=== PATIENT | male | born 1945 | race Caucasian/White ===

== ENCOUNTER 2017-06-22 10:55 | Outpatient (RCR) | payer BC, MEDICARE ==
[~2017-06-22 10:55] MED LIST: ASP81TEC PO; BUTA-234 PO; DIPH1TAB25 PO; ENOX100D9 SQ; GABAPENTIN; HYDR-3720 PO; LITH300C PO; LNS30CCR PO; LORA1TAB PO; MECL25TA56 PO; WRF5T PO
== END 2017-09-20 | disposition home or self-care (01) ==
LOC: ONC 10:55
PROVIDERS: ATTEND Internal Medicine Hematology & Oncology
DX: Z09 Encounter for follow-up examination after completed treatment for conditions other than malignant neoplasm (principal); Z86.711 Personal history of pulmonary embolism; Z86.718 Personal history of other venous thrombosis and embolism; K21.9 Gastro-esophageal reflux disease without esophagitis; F31.9 Bipolar disorder, unspecified; Z79.01 Long term (current) use of anticoagulants
CPT/HCPCS: 99213

== ENCOUNTER 2021-12-05 08:07 | Emergency (ER) | payer MEDICARE ==
[~2021-12-05] VITALS: Ht 154 cm; Wt 95.0 kg
[2021-12-05] MEDS ORDERED: KETOROLAC 30 MG/ML VIAL IM STA (08:35)
--- NOTE | 2021-12-05 08:48 | ED Back Pain ---
General Chief Complaint: Back Problems Stated Complaint: BACK PAIN Nursing Triage Note: PT ABM TO RM 5 PT CO OF BACK PAIN, UPPER BACK BETWEEN SHOULDERS, STATES L HAND GOING NUMB SINCE WAKING THIS AM. PT STATES UPPER BACK HAS BEEN GOING ON FOR 2-5 DAYS Source of Information: Patient, Family Exam Limitations: No Limitations History of Present Illness Date Seen by Provider: Dec 05, 2021 Time Seen by Provider: 08:12 Initial Comments Here with pain to the left side of the back that radiates from between the shoulder blades up to the neck and now down the arm. This has been going on for the last several days and maybe up to 5 days. Denies inciting event but does admit to moving mulch and gardening at the beginning of the month. Does have history of cervical degeneration. Denies anterior chest pain,, nausea, vomiti ng, sweating or weakness. Does state that there is some numbness of the left hand but retains movement. Pain is much worse when moving or sitting up and worse with movement of the left arm. noted muscle spasm and hard knot between the shoulder range and the spine on the left. Did get a little better with ibuprofen yesterday but does not typically take that. Does have some stomach problems and was on diclofenac but is off that now due to the stomach problems. Otherwise no changes for the patient. Timing/Duration: 4-5 Days Severity: Moderate Pain/Injury Location: Back Radiation: Other (Left-sided neck and left arm) Associated Symptoms: muscle spasms; No weakness, No lower back pain, No loss of bladder control, No loss of bowel control Allergies and Home Medications Allergies Coded Allergies: No Known Drug Allergies (Unverified , 09/12/13) Patient Home Medication List Home Medication List Reviewed: Yes Aspirin (Aspirin Ec 81 Mg) 81 Mg Tabec, 81 MG PO DAILY, (Reported) Entered as Reported by: ANAID JUSTICE on 09/12/13 1343 [place] Carbonate (Shaft Carbonate 300 Mg Cap) 300 Mg Capsule, 900 MG PO DAILY, (Reported) Entered as Reported by: YUAN LÓPEZ on 08/11/11 1133 Meclizine Hcl (Antivert 25 Mg) 25 Mg Tablet, 1 EACH PO TID PRN PRN for DIZZINESS Prescribed by: MAX DE PAZ on 09/12/13 1558 [Gabapentin] , 900 MG DAILY, (Reported) Entered as Reported by: ANAID JUSTICE on 09/12/13 1343 Review of Systems Constitutional: see HPI; No chills, No fever Respiratory: No cough, No short of breath; other (Pain with deep breathing occasionally to the left back) Cardiovascular: see HPI; No chest pain, No edema Gastrointestinal: No nausea, No vomiting Musculoskeletal: back pain, muscle pain, muscle stiffness Skin: No change in color, No lesions Psychiatric/Neurological: See HPI; Denies Weakness Past Aeqqnmg-Atbvvp-Vnryjc Hx Patient Social History Tobacco Use?: No Smoking Status: Former Smoker Substance use?: No Alcohol Use?: No Pt feels they are or have been: No Immunizations Up To Date First/Initial COVID19 Vaccinat: 2020 Second COVID19 Vaccination Jarek: 2020 COVID19 Vaccine Bullet Maker: gisela Past Medical History Surgery/Hospitalization HX: APPY, HX PE, DISCETOMY L SPINE, CERVICAL DISC, BIPOLAR, GERD Respiratory: Yes Pulmonary Embolism Reproductive Disorders: Yes (Prostate Hypertrophy) Sexually Transmitted Disease: No HIV/AIDS: No Musculoskeletal: Yes Degenerate Disk Disease Family Medical History Reviewed Nursing Family Hx No Pertinent Family Hx Physical Exam Vital Signs Vital Signs - First Documented 12/05/21 08:13 Temp 37.2 Pulse 76 Resp 18 B/P (MAP) 168/88 (114) Pulse Ox 97 Capillary Refill : Less Than 3 Seconds Height, Weight, BMI Height: 6'1" Weight: 230lbs. oz. 104.402736wh; 40.00 BMI Method:Stated General Appearance: WD/WN, Mild Distress (Left back pain upper) Neck: Full Range of Motion, Normal Inspection, Non Tender, Supple Cardiovascular: Regular Rate, Rhythm, No Murmur Respiratory: Lungs Clear, Normal Breath Sounds Back: No Vertebral Tenderness, Muscle Spasm (Left upper back between scapula and spine. Area of rhomboids with muscle spasm and not noted. This is palpable and point tender with reproducible pain at site reproducing all symptoms.) Neurologic/Psychiatric: Alert, Oriented x3 Skin: Normal Color, Warm/Dry Progress/Results/Core Measures Results/Orders My Orders Orders - MAX DE PAZ MD Ketorolac Injection (Toradol Injection) (12/05/21 08:35) Vital Signs/I&O 12/05/21 08:13 Temp 37.2 Pulse 76 Resp 18 B/P (MAP) 168/88 (114) Pulse Ox 97 Blood Pressure Mean: 114 Progress Progress Note : Progress Note Seen and evaluated. Patient had quite tender area on left upper back were muscle spasm noted in the area of rhomboids on the left. I was able to isolate the spasm and apply pressure and hold. Ultimately I was able to reduce the spasm his pain was markedly reduced and he felt better. We did give Toradol 30 mg IM. Overall I do believe this is musculoskeletal. We did talk about other causes of pain and return precautions. Overall patient and family felt comfortable going home. Discharged home with return precautions. Patient verbalized understanding of instructions and agreement with plan. Departure Impression Primary Impression: Rhomboid muscle strain Qualified Codes: S29.012A - Strain of muscle and tendon of back wall of thorax, initial encounter Disposition: HOME, SELF-CARE Condition: Improved Departure-Patient Inst. Decision time for Depature: 08:51 Referrals: LUL LOYD MD (PCP/Family) Primary Care Physician Patient Instructions: Back Muscle Strain (DC), Upper Back Pain ED Add. Discharge Instructions: All discharge instructions reviewed with patient and/or family. Voiced understanding. You may use [id number] Icy Hot with lidocaine, Aspercreme with lidocaine, Salonpas with lidocaine or similar items to area of concern per package directions. Cream will likely work very well but you may also try patches. Take other medications as previously prescribed. You may take Tylenol/acetaminophen 1000 mg every 6 hours as needed for pain as well. Return for worse pain, chest pain, breathing problems, dizziness, weakness, sweating, nausea vomiting or other concerns as needed. Follow-up with your doctor in a few days for recheck as needed. MAX DE PAZ MD Dec 05, 2021 08:48
[2021-12-05 09:00] VITALS: BP 168/88
== END 2021-12-05 09:00 | disposition home or self-care (01) ==
LOC: EDUNIT# 08:07 → ER 08:08
DX: S46.812A Strain of other muscles, fascia and tendons at shoulder and upper arm level, left arm, initial encounter (principal); Z87.891 Personal history of nicotine dependence; X58.XXXA Exposure to other specified factors, initial encounter
CPT/HCPCS: 99284

== ENCOUNTER 2023-02-16 14:00 | Emergency (ER) | payer MEDICARE ==
[~2023-02-16] VITALS: Ht 185.4 cm; Wt 92.9 kg
[2023-02-16 14:31] LABS: BASOPHILS % (AUTO) 0 % (0-10); EOSINOPHILS # (AUTO) 0.1 10^3/uL (0.0-0.3); EOSINOPHILS % (AUTO) 1 % (0-10); MEAN CORPUSCULAR VOLUME 91 fL (80-99)
[2023-02-16 14:33] LABS: HEMATOCRIT 36 % (40-54); HEMOGLOBIN 12.4 g/dL (13.3-17.7); LYMPHOCYTES # (AUTO) 1.3 10^3/uL (1.0-4.0); LYMPHOCYTES % (AUTO) 28 % (12-44); MEAN CORPUSCULAR HEMOGLOBIN 31 pg (25-34); MEAN CORPUSCULAR HGB CONC 34 g/dL (32-36); MONOCYTES # (AUTO) 0.4 10^3/uL (0.0-1.0); MONOCYTES % (AUTO) 9 % (0-12); NEUTROPHILS # (AUTO) 2.8 10^3/uL (1.8-7.8); NEUTROPHILS % (AUTO) 61 % (42-75); PLATELET COUNT 127 10^3/uL (130-400); WHITE BLOOD COUNT 4.6 10^3/uL (4.3-11.0)
[2023-02-16 14:44] LABS: ALBUMIN 3.8 GM/DL (3.2-4.5)
[2023-02-16 14:45] LABS: POTASSIUM 4.1 MMOL/L (3.6-5.0)
[2023-02-16 14:46] LABS: CALCIUM 8.8 MG/DL (8.5-10.1)
[2023-02-16 14:47] LABS: TOTAL PROTEIN 6.7 GM/DL (6.4-8.2)
[2023-02-16 14:49] LABS: BILIRUBIN,TOTAL 0.7 MG/DL (0.1-1.0)
[2023-02-16 14:51] LABS: CREATININE SERUM 0.97 MG/DL (0.60-1.30)
--- NOTE | 2023-02-16 15:11 | ED General ---
General Chief Complaint: Head/Cervical Problems Stated Complaint: SEVERE HEAD PAIN Nursing Triage Note: PT AMB TO TRIAGE RM WITH CC OF SEVERE HEADACHE ON TOP OF HEAD THAT RADIATES DOWN THE BACK OF HIS NECK X5 DAYS. PT STATES THAT HE HAS HAD FLU-LIKE SYMPTOMS X1.5 WEEKS. PT REFERED TO ED BY [facility]. Source of Information: Patient Exam Limitations: No Limitations History of Present Illness Date Seen by Provider: Feb 16, 2023 Allergies and Home Medications Allergies Coded Allergies: No Known Drug Allergies (Unverified , 09/12/13) Patient Home Medication List Amoxicillin (Amoxicillin) 500 Mg Capsule, 1,000 MG PO TID Prescribed by: ADDY RAWLS on 02/16/23 1723 Aspirin (Aspirin Ec 81 Mg) 81 Mg Tabec, 81 MG PO DAILY, (Reported) Entered as Reported by: ANAID JUSTICE on 09/12/13 1343 Doxycycline Hyclate (Doxycycline Hyclate) 100 Mg Tablet, 100 MG PO BID Prescribed by: ADDY RAWLS on 02/16/23 1723 [place] Carbonate ([place] Carbonate 300 Mg Cap) 300 Mg Capsule, 900 MG PO DAILY, (Reported) Entered as Reported by: YUAN LÓPEZ on 08/11/11 1133 Meclizine Hcl (Antivert 25 Mg) 25 Mg Tablet, 1 EACH PO TID PRN PRN for DIZZINESS Prescribed by: MAX DE PAZ on 09/12/13 1558 [Gabapentin] , 900 MG DAILY, (Reported) Entered as Reported by: ANAID JUSTICE on 09/12/13 1343 Past Aszrnqy-Orxiny-Srdybs Hx Patient Social History Tobacco Use?: No Substance use?: No Alcohol Use?: No Immunizations Up To Date First/Initial COVID19 Vaccinat: 2020 Second COVID19 Vaccination Jarek: 2020 Third COVID19 Vaccination Date: 2020 Past Medical History Surgery/Hospitalization HX: APPY, HX PE, DISCETOMY L SPINE, CERVICAL DISC, BIPOLAR, GERD Respiratory: Yes Pulmonary Embolism Reproductive Disorders: Yes (Prostate Hypertrophy) Sexually Transmitted Disease: No HIV/AIDS: No Musculoskeletal: Yes Degenerate Disk Disease Family Medical History No Pertinent Family Hx Physical Exam Vital Signs Vital Signs - First Documented 02/16/23 14:04 Temp 37.1 Pulse 68 B/P (MAP) 122/77 (92) Pulse Ox 97 O2 Delivery Room Air Capillary Refill : Height, Weight, BMI Height: 6'1" Weight: 230lbs. oz. 104.477523hv; 27.00 BMI Method:Stated Progress/Results/Core Measures Suspected Sepsis SIRS Temperature: Pulse: 68 Respiratory Rate: Laboratory Tests 02/16/23 14:22: White Blood Count 4.6 Blood Pressure 122 /77 Mean: 93 Laboratory Tests 02/16/23 14:22: Creatinine 0.97, Platelet Count 127L, Total Bilirubin 0.7 Results/Orders Lab Results Laboratory Tests Test 02/16/23 14:22 02/16/23 14:43 Range/Units White Blood Count 4.6 4.3-11.0 10^3/uL Red Blood Count 3.96 L 4.30-5.52 10^6/uL Hemoglobin 12.4 L 13.3-17.7 g/dL Hematocrit 36 L 40-54 % Mean Corpuscular Volume 91 80-99 fL Mean Corpuscular Hemoglobin 31 25-34 pg Mean Corpuscular Hemoglobin Concent 34 32-36 g/dL Red Cell Distribution Width 13.5 10.0-14.5 % Platelet Count 127 L 130-400 10^3/uL Mean Platelet Volume 10.0 9.0-12.2 fL Immature Granulocyte % (Auto) 0 % Neutrophils (%) (Auto) 61 42-75 % Lymphocytes (%) (Auto) 28 12-44 % Monocytes (%) (Auto) 9 0-12 % Eosinophils (%) (Auto) 1 0-10 % Basophils (%) (Auto) 0 0-10 % Neutrophils # (Auto) 2.8 1.8-7.8 10^3/uL Lymphocytes # (Auto) 1.3 1.0-4.0 10^3/uL Monocytes # (Auto) 0.4 0.0-1.0 10^3/uL Eosinophils # (Auto) 0.1 0.0-0.3 10^3/uL Basophils # (Auto) 0.0 0.0-0.1 10^3/uL Immature Granulocyte # (Auto) 0.0 0.0-0.1 10^3/uL Percent Immature Platelet Fraction 4.5 0.0-7.6 % Erythrocyte Sedimentation Rate 9 0-30 MM/HR Sodium Level 136 135-145 MMOL/L Potassium Level 4.1 3.6-5.0 MMOL/L Chloride Level 109 H 98-107 MMOL/L Carbon Dioxide Level 20 L 21-32 MMOL/L Anion Gap 7 5-14 MMOL/L Blood Urea Nitrogen 17 7-18 MG/DL Creatinine 0.97 0.60-1.30 MG/DL Estimat Glomerular Filtration Rate 80 BUN/Creatinine Ratio 18 Glucose Level 95 70-105 MG/DL Calcium Level 8.8 8.5-10.1 MG/DL Corrected Calcium 9.0 8.5-10.1 MG/DL Total Bilirubin 0.7 0.1-1.0 MG/DL Aspartate Amino Transf (AST/SGOT) 59 H 5-34 U/L Alanine Aminotransferase (ALT/SGPT) 67 H 0-55 U/L Alkaline Phosphatase 57 40-136 U/L C-Reactive Protein High Sensitivity 0.39 0.00-0.50 MG/DL Total Protein 6.7 6.4-8.2 GM/DL Albumin 3.8 3.2-4.5 GM/DL Influenza Type A (RT-PCR) Not Detected Not Detecte Influenza Type B (RT-PCR) Not Detected Not Detecte SARS-CoV-2 RNA (RT-PCR) Not Detected Not Detecte Group A Streptococcus Screen NEGATIVE NEGATIVE My Orders Orders - ADDY CEJA MD Cbc With Automated Diff (02/16/23 14:16) Comprehensive Metabolic Panel (02/16/23 14:16) Hs C Reactive Protein (02/16/23 14:16) Erythrocyte Sedimentation Rate (02/16/23 14:16) Ed Iv/Invasive Line Start (02/16/23 14:16) Covid 19 Inhouse Test (02/16/23 14:16) Influenza A And B By Pcr (02/16/23 14:16) Chest Pa/Lat (2 View) (02/16/23 14:45) Rapid Strep A Screen (02/16/23 14:45) Throat Culture Strep A Confirm (02/16/23 14:43) Ct Head Wo (02/16/23 15:18) Tick Panel With Lyme Eia (02/16/23 17:15) West Nile Virus Igg & M (02/16/23 17:15) Vital Signs/I&O 02/16/23 02/16/23 02/16/23 02/16/23 14:04 15:08 15:34 16:54 Temp 37.1 Pulse 68 59 59 57 B/P (MAP) 122/77 (92) 128/76 (93) 113/73 (86) 109/69 (82) Pulse Ox 97 97 95 97 O2 Delivery Room Air Room Air Room Air Room Air Capillary Refill : Blood Pressure Mean: 93 Departure Impression Primary Impression: Severe headache Additional Impression: Flu-like symptoms Disposition: 01 HOME, SELF-CARE Condition: Stable Departure-Patient Inst. Decision time for Depature: 17:17 Referrals: NETTIE ORDOÑEZ APRN (PCP/Family) Primary Care Physician Patient Instructions: Headache, Adult ED, Tickborne Encephalitis Add. Discharge Instructions: The exact cause of your symptoms is uncertain. You have pending tests for throat culture, West Nile virus, and tickborne diseases. Continue taking amoxicillin and doxycycline until results of these tests are known. Drink plenty of clear liquids to stay well-hydrated. For pain you may take ibuprofen up to 600 mg every 6 hours as needed. You may additionally take Tylenol (acetaminophen) up to 1000 mg every 6 hours as needed. Doxycycline may cause some stomach upset, so you may wish to take it with food or milk. Doxycycline may also cause sun sensitivity, so avoid significant direct sun contact while on this medication. Return to the emergency room if you have worsening symptoms despite following these instructions. All discharge instructions reviewed with patient and/or family. Voiced understanding. Scripts Ondansetron (Ondansetron Odt) 4 Mg Tab.rapdis 4 MG SL Q4H PRN for NAUSEA/VOMITING, #10 TAB Prov: ADDY CEJA MD 02/16/23 Amoxicillin (Amoxicillin) 500 Mg Capsule 1000 MG PO TID, #40 CAP 0 Refills Prov: ADDY CEJA MD 02/16/23 Doxycycline Hyclate (Doxycycline Hyclate) 100 Mg Tablet 100 MG PO BID, #20 TAB Prov: ADDY CEJA MD 02/16/23 ADDY CEJA MD Feb 16, 2023 15:11
[2023-02-16 15:19] LABS: ERYTHROCYTE SEDIMENTATION RATE 9 MM/HR (0-30)
--- NOTE | 2023-02-16 15:38 | Diagnostic Imaging Report ---
EXAMINATION: Chest 2 view HISTORY: Cough COMPARISON: None available. FINDINGS: Heart size and pulmonary vasculature are normal. The lungs are clear without consolidation, pleural effusion, or pneumothorax. The osseous structures are intact. IMPRESSION: 1. No acute radiographic abnormality in the chest. Dictated by: Dictated on workstation # [id number]
--- NOTE | 2023-02-16 16:20 | Diagnostic Imaging Report ---
CLINICAL INDICATION: Patient with severe headache on top of the head that radiates down the back of his neck x5 days. Patient states he has had flu-like symptoms x1.5 weeks. EXAM: Axial CT scan of the brain performed without IV contrast. Auto Exposure Controls were utilized during the CT exam to meet ALARA standards for radiation dose reduction. COMPARISON: None. FINDINGS: There is no evidence of acute cerebral infarct, intracranial hemorrhage, or gross mass effect. The brain parenchymal volume appears appropriate for patient's age. There is minimal chronic small vessel ischemic disease. There is normal mendieta-white matter distinction. There is no significant midline shift or herniation. There is no evidence of hydrocephalus. The basal cisterns are unremarkable. The skull, extracranial soft tissue, and orbits are unremarkable. The paranasal sinuses are unremarkable. Temporal bones show no significant abnormality. IMPRESSION: Unremarkable CT scan of the brain for age. Dictated by: Dictated on workstation # [id number]
[2023-02-16] MEDS ORDERED: DOXY100T2 PO (17:23)
[2023-02-16] MEDS ORDERED: AMOX500C2 PO (17:23)
[2023-02-16] MEDS ORDERED: ONDA4TAB11 SL (17:39)
[2023-02-16 17:40] VITALS: BP 117/78
== END 2023-02-16 17:40 | disposition home or self-care (01) ==
LOC: EDUNIT# 14:00 → ER 14:02
DX: R51.9 Headache, unspecified (principal); Z20.822 Contact with and (suspected) exposure to COVID-19
CPT/HCPCS: 36415; 70450; 71046; 80053; 85025; 85652; 86141; 86618; 86666; 86668; 86757; 86788; 86789; 87430; 87636